=== PATIENT | female | born 1970 | race Caucasian/White ===

== ENCOUNTER 2019-12-07 11:32 | Emergency (ER) | payer BC ==
--- NOTE | 2019-12-07 11:36 | EDM.PDOC ---
ED HPI GENERAL MEDICAL PROBLEM - General Chief Complaint: General Stated Complaint: TINGLING UNDER SKIN Time Seen by Provider: 12/07/19 11:15 Source of Information: Reports: Patient History Limitations: Reports: No Limitations - History of Present Illness INITIAL COMMENTS - FREE TEXT/NARRATIVE: Patient presents with concerns of possibly having a blood clot. States she awoke at 0400 today with a tingling sensation behind her left knee, felt like it was pulsating. That resolved but then recurred in her right chest. [place] the blood vessels in her chest were "protruding more than normal". Denies any chest pain. [place] uncomfortable when rubbing over the area. Now noting the sensation behind her right knee. Did check her blood pressure at home every 15 minutes and was low to normal. No history of any medical problems. Did feel more short of breath and fatigued when up walking around. Has not had any swelling in her legs. Have not felt cold or looked pale. Does note mild calf pain in the left leg at times. Onset: Today Duration: Hour(s):, Waxing/Waning Location: Reports: Chest, Lower Extremity, Left, Lower Extremity, Right Quality: Reports: Other (tingling) Severity: Mild Associated Symptoms: Reports: Shortness of Breath. Denies: Confusion, Chest Pain, Cough, Fever/Chills, Loss of Appetite, Nausea/Vomiting, Weakness - Related Data Allergies Allergy/AdvReac Type Severity Reaction Status Date / Time Sulfa (Sulfonamide Allergy Anaphylactic Verified 12/07/19 12:18 Antibiotics) Shock sulfamethoxazole Allergy Anaphylactic Verified 12/07/19 12:18 [From ] Shock trimethoprim [From ] Allergy Anaphylactic Verified 12/07/19 12:18 Shock Past Medical History - Past Health History Medical/Surgical History: Denies Medical/Surgical History Social & Family History - Tobacco Use Smoking Status *Q: Unknown Ever Smoked ED ROS GENERAL - Review of Systems Review Of Systems: See Below Constitutional: Denies: Fever, Chills, Malaise, Weakness, Fatigue, Decreased Appetite HEENT: Denies: Ear Pain, Rhinitis, Sinus Problem, Throat Pain Respiratory: Reports: Shortness of Breath. Denies: Cough Cardiovascular: Denies: Chest Pain, Edema, Lightheadedness Endocrine: Reports: Fatigue GI/Abdominal: Denies: Abdominal Pain, Constipation, Diarrhea, Nausea, Vomiting : Reports: No Symptoms Musculoskeletal: Reports: No Symptoms Skin: Reports: No Symptoms Neurological: Reports: Weakness ED EXAM, GENERAL - Physical Exam Exam: See Below Exam Limited By: No Limitations General Appearance: Alert, WD/WN, No Apparent Distress Ears: Normal External Exam, Normal TMs Nose: Normal Inspection, Normal Mucosa, No Blood Throat/Mouth: Normal Inspection, Normal Oropharynx Head: Normocephalic Neck: Normal Inspection, Supple, Non-Tender Respiratory/Chest: No Respiratory Distress, Lungs Clear, Normal Breath Sounds Cardiovascular: Regular Rate, Rhythm GI/Abdominal: Normal Bowel Sounds, Soft, Non-Tender Extremities: Normal Inspection, No Pedal Edema, Normal Capillary Refill Neurological: Alert, Oriented Skin Exam: Warm, Dry Course - Vital Signs Last Recorded V/S: Last Vital Signs Temp 97.2 F 12/07/19 12:07 Pulse 72 12/07/19 12:07 Resp 18 12/07/19 12:07 BP 160/83 H 12/07/19 12:07 Pulse Ox 98 12/07/19 12:07 - Orders/Labs/Meds Labs: Laboratory Tests 12/07/19 12/07/19 12/07/19 Range/Units 11:35 11:35 11:35 WBC 7.3 (4.0-10.0) x10^3/uL RBC 4.40 (4.00-5.50) x10^6/uL Hgb 12.6 (12.0-16.0) g/dL Hct 38.3 (33.0-47.0) % MCV 87.0 (78.0-93.0) fL MCH 28.6 (26.0-32.0) pg MCHC 32.9 (32.0-36.0) g/dL RDW Coeff of Haylee 14.8 (10.0-15.0) % Plt Count 217 (130-400) x10^3/uL Neut % (Auto) 54.3 (50.0-80.0) % Lymph % (Auto) 30.1 (25.0-50.0) % [place] % (Auto) 10.2 (2.0-11.0) % Eos % (Auto) 5.0 H (0.0-4.0) % Baso % (Auto) 0.4 (0.2-1.2) % D-Dimer, Quantitative 0.42 (<=0.58) mg/LFEU Sodium 141 (136-145) mmol/L Potassium 5.0 (3.5-5.1) mmol/L Chloride 104 (98-107) mmol/L Carbon Dioxide 28 (21-32) mmol/L Anion Gap 14.0 (10-20) mmol/L BUN 15 (7-18) mg/dL Creatinine 0.9 (0.55-1.02) mg/dL Est Cr Clr Drug Dosing 66.01 mL/min Estimated GFR (MDRD) > 60 Glucose 83 (74-106) mg/dL Calcium 9.2 (8.5-10.1) mg/dL Corrected Calcium 9.20 (8.5-10.1) mg/dL Magnesium 2.1 (1.8-2.4) mg/dL Total Bilirubin 0.4 (0.2-1.0) mg/dL AST 18 (15-37) U/L ALT 19 (14-59) U/L Alkaline Phosphatase 73 (46-116) U/L Troponin I < 0.017 (<=0.056) ng/mL Total Protein 7.5 (6.4-8.2) g/dL Albumin 4.0 (3.4-5.0) g/dL Globulin 3.5 Albumin/Globulin Ratio 1.14 - Re-Assessments/Exams Free Text/Narrative Re-Assessment/Exam: 12/07/19 12:18 Labs are all normal. Patient reassured of results. Encouraged to rest and push fluids. Departure - Departure Time of Disposition: 12:19 Disposition: Home, Self-Care 01 Condition: Good Clinical Impression: Complaint of paresthesia - Discharge Information *PRESCRIPTION DRUG MONITORING PROGRAM REVIEWED*: No *COPY OF PRESCRIPTION DRUG MONITORING REPORT IN PATIENT TRANG: No Instructions: Paresthesia Forms: ED Department Discharge Additional Instructions: 1. Rest 2. Push fluids 3. Return to regular provider if symptoms persist or change. 4. Call with any questions or concerns. Sepsis Event Note - Focused Exam Vital Signs: Vital Signs Temp Pulse Resp BP Pulse Ox 12/07/19 12:07 97.2 F 72 18 160/83 H 98 Date Exam was Performed: 12/07/19 Time Exam was Performed: 12:18
[2019-12-07 12:08] LABS: CHLORIDE,CL 104 mmol/L (98-107); SODIUM,NA 141 mmol/L (136-145)
== END 2019-12-07 12:30 | disposition home or self-care (01) ==
LOC: MERGE 11:32 → VM.ED 11:32
DX: R20.2 Paresthesia of skin (principal); Z88.2 Allergy status to sulfonamides
CPT/HCPCS: 36415; 80053; 83735; 84484; 85025; 85379; 99284